=== PATIENT | male | born 1965 | race Caucasian/White ===

== ENCOUNTER 2019-05-04 10:18 | Emergency (ER) | payer OTHER ==
[~2019-05-04] VITALS: Ht 170.2 cm; Wt 127.0 kg
[2019-05-04 10:28] VITALS: Ht 170.2 cm; Wt 127.0 kg
[2019-05-04 12:24] VITALS: BP 127/81
== END 2019-05-04 12:24 | disposition home or self-care (01) ==
LOC: ED 10:18
DX: T78.40XA Allergy, unspecified, initial encounter (principal); I10 Essential (primary) hypertension; E78.00 Pure hypercholesterolemia, unspecified; X58.XXXA Exposure to other specified factors, initial encounter
CPT/HCPCS: J1200; J2930; J3490